=== PATIENT | female | born 1995 | race American Indian/Alaskan Native ===

== ENCOUNTER 2017-01-03 20:10 | Emergency (ER) | payer SELFPAY ==
[2017-01-03 20:14] VITALS: BMI 24.3
[2017-01-03 20:19] VITALS: RESP 18; O2SAT 96
[2017-01-03] MEDS ORDERED: Sodium Chloride 0.9% 1,000 ML IV STA (20:32)
[2017-01-03 20:49] LABS: URINE BILIRUBIN NEGATIVE (NEGATIVE); URINE BLOOD NEGATIVE (NEGATIVE); URINE GLUCOSE (UA) NEGATIVE (NEGATIVE); URINE KETONE NEGATIVE (NEGATIVE); URINE LEUKOCYTE ESTERASE NEGATIVE Leu/uL (NEGATIVE); URINE PROTEIN NEGATIVE mg/dL (<30 mg/dL); URINE UROBILINOGEN 0.2 E.U./dL (<1 E.U./dL)
[2017-01-03 20:52] LABS: URINE APPEARANCE CLEAR (CLEAR); URINE COLOR YELLOW (YELLOW)
--- NOTE | 2017-01-03 20:52 | ED PDOC ---
Arrival/HPI - General Chief Complaint: Flu-like Symptoms Time Seen by Provider: 01/03/17 20:19 Historian: Patient - History of Present Illness Narrative History of Present Illness (Text): 01/03/17 20:43 21yr old female presents today with fevers/chills/bodyaches x 2 days. c/o 1 day history of low back pain. denies dysuria complaining of slight urinary frequency that started today. Denies cough. Denies chest pain or shortness of breath. Patient states she took Motrin earlier today. Patient also states she took [place]. She denies any URI symptoms. Denies nasal congestion sore throat or ear pain. Denies vomiting or diarrhea. Denies abdominal pain. No vaginal bleeding or vaginal discharge. Past Medical History - Provider Review Nursing Documentation Reviewed: Yes - Travel History Have you recently traveled outside [place] w/in the past 3 mons?: No - Infectious Disease Hx of Infectious Diseases: None - Tetanus Immunization Tetanus Immunization: Unknown - Hematological/Oncological Hx Anemia: Yes - Gastrointestinal Other/Comment: GI Bleed - Psychiatric Hx Substance Use: Yes - Surgical History Other/Comment: for GI bleed - Anesthesia Hx Anesthesia: Yes Hx Anesthesia Reactions: No Hx Malignant Hyperthermia: No Family/Social History - Physician Review Nursing Documentation Reviewed: Yes Family/Social History: Unknown Family HX Smoking Status: Current Some Days Smoker Hx Alcohol Use: Yes Frequency of alcohol use: Socially Hx Substance Use: Yes Substance used: Marijuana Allergies/Home Meds Allergies/Adverse Reactions: Allergies No Known Allergies Allergy (Verified 01/03/17 20:14) Review of Systems - Review of Systems Constitutional: Fatigue, Fevers ENT: absent: Sore Throat, Sinus Congestion Respiratory: absent: SOB, Cough Cardiovascular: absent: Chest Pain, Palpitations Gastrointestinal: absent: Abdominal Pain, Constipation, Diarrhea, Nausea, Vomiting Genitourinary Female: Frequency. absent: Dysuria, Hematuria, Vaginal Bleeding, Vaginal Discharge Musculoskeletal: Back Pain. absent: Arthralgias, Neck Pain Skin: absent: Rash, Pruritis Neurological: absent: Headache, Dizziness Psychiatric: absent: Anxiety, Depression Physical Exam Vital Signs Reviewed: Yes Vital Signs Temp Pulse Resp BP Pulse Ox 01/03/17 20:59 100.1 F H 01/03/17 20:18 100.1 F H 114 H 18 108/67 96 Temperature: Afebrile Blood Pressure: Normal Pulse: Tachycardic Respiratory Rate: Normal Appearance: Positive for: Well-Appearing, Non-Toxic, Comfortable Pain Distress: None Mental Status: Positive for: Alert and Oriented X 3 - Systems Exam Head: Present: Atraumatic Conjunctiva: Present: Normal Mouth: Present: Moist Mucous Membranes Pharnyx: Present: Normal Neck: Present: Normal Range of Motion, Trachea Midline. No: Meningeal Signs Respiratory/Chest: Present: Clear to Auscultation, Good Air Exchange. No: Respiratory Distress, Accessory Muscle Use Cardiovascular: Present: Regular Rate and Rhythm, Normal S1, S2. No: Murmurs Abdomen: Present: Normal Bowel Sounds. No: Tenderness, Distention, Peritoneal Signs, Rebound, Guarding Back: Present: Normal Inspection. No: CVA Tenderness, Midline Tenderness, Paraspinal Tenderness Upper Extremity: Present: Normal ROM Lower Extremity: Present: Normal ROM Neurological: Present: GCS=15, Speech Normal Skin: Present: Warm, Dry, Normal Color. No: Rashes Psychiatric: Present: Alert, Oriented x 3 Medical Decision Making ED Course and Treatment: 01/03/17 20:52 Patient nontoxic well-appearing no distress with body aches fevers and chills 2 days. With low back pain 1 day CBC within normal limits CMP within normal limits Urinalysis: + nitrates, + bacteria; Rapid flu: negative tylenol given po keflex po pt reassessment; pt non toxic well appearing; no distress. stable vitals. pt with urinary frequency and low back pain. with + nitrates and bacteria; will treat for UTI. NO cva tenderness 01/03/17 21:51 discussed all results in depth with patient advised abx twice daily x 7 days for UTI. advised f/u with pmd. advised return immediately if symptoms worsen, persist or if new symptoms develop. Patient verbalizes understanding of discharge instructions and need for immediate followup. all aspects of this case were discussed the attending of record. impression; UTI Motrin every 6 hours as needed for fever/pain reduction Keflex 1 capsule twice daily 7 days increase fluids Follow-up primary care physician within the next 2 days Return immediately if symptoms worsen or persist or if new concerning symptoms develop - Lab Interpretations Lab Results: 01/03/17 20:56 01/03/17 20:56 Lab Results 01/03/17 20:56: WBC 10.0, RBC 4.86, Hgb 13.2, Hct 37.8, MCV 77.8 L, MCH 27.2, MCHC 34.9, RDW 14.0, Plt Count 391, MPV 10.1, Gran % 81.5 H, Lymph % (Auto) 6.8 L, [place] % (Auto) 10.7 H, Eos % (Auto) 0.8 L, Baso % (Auto) 0.2, Gran # 8.11 H, Lymph # 0.7 L, [place] # 1.1 H, Eos # 0.1, Baso # 0.02, Sodium 138, Potassium 4.1, Chloride 99, Carbon Dioxide 26, Anion Gap 17, BUN 9, Creatinine 0.9, Est GFR ( Amer) > 60, Est GFR (Non-Af Amer) > 60, Random Glucose 98, Calcium 9.8, Total Bilirubin 1.0, AST 33, ALT 31, Alkaline Phosphatase 70, Total Protein 9.2 H, Albumin 4.6, Globulin 4.6, Albumin/Globulin Ratio 1.0 L 01/03/17 20:35: Urine Color Yellow, Urine Appearance Clear, Urine pH 6.0, Ur Specific [place] 1.015, Urine Protein Negative, Urine Glucose (UA) Negative, Urine Ketones Negative, Urine Blood Negative, Urine Nitrate Positive H, Urine Bilirubin Negative, Urine Urobilinogen 0.2, Ur Leukocyte Esterase Negative, Urine RBC 0 - 2, Urine WBC 0 - 2, Ur Epithelial Cells 4 - 5, Amorphous Sediment Few, Urine Bacteria Mod, Influenza Typ A,B (EIA) Negative for flu a/b - Medication Orders Current Medication Orders: Cephalexin Monohydrate (Keflex) 500 mg PO STAT STA PRN Reason: Protocol Stop: 01/03/17 21:50 Discontinued Medications Acetaminophen (Tylenol 325mg Tab) 975 mg PO STAT STA Stop: 01/03/17 20:44 Last Admin: 01/03/17 20:59 Dose: 975 MG MAR Pain/Vitals Document 01/03/17 20:59 MR (Rec: 01/03/17 21:00 [id number]) Pain Reassessment Is This A Pain ReAssessment? No Presence of Pain Presence of Pain Yes Pain Scale Used Pain Scale Used Numeric Location Left, Right or Bilateral Bilateral Upper or Lower Lower Pain Location Body Site Back Intensity 6 Scale Used Numeric Vitals Temperature (97.6 F-99.6 F) 100.1 F Temperature Source Oral Sodium Chloride (Sodium Chloride 0.9%) 1,000 mls @ 999 mls/hr IV .Q1H1M STA Stop: 01/03/17 21:32 Last Admin: 01/03/17 20:57 Dose: 999 MLS/HR eMAR Start Stop Document 01/03/17 20:57 (Rec: 01/03/17 20:57 MR [id number]) Intravenous Solution Start Date 01/03/17 Start Time 20:57 End Date 01/03/17 End time 21:57 Total Infusion Time 60 Disposition/Present on Arrival - Present on Arrival Any Indicators Present on Arrival: No History of DVT/PE: No History of Uncontrolled Diabetes: No Urinary Catheter: No History of Decub. Ulcer: No History Surgical Site Infection Following: None - Disposition Have Diagnosis and Disposition been Completed?: Yes Diagnosis: Urinary tract infection Disposition Time: 21:54 Patient Plan: Discharge Condition: GOOD Discharge Instructions (ExitCare): Urinary Tract Infection in Women (ED) Additional Instructions: Motrin every 6 hours as needed for fever/pain reduction Keflex 1 capsule twice daily 7 days increase fluids Follow-up primary care physician within the next 2 days Return immediately if symptoms worsen or persist or if new concerning symptoms develop Prescriptions: Cephalexin [Keflex] 500 mg PO BID #14 capsule Ibuprofen [Motrin] 600 mg PO Q6H PRN #20 tab PRN Reason: pain/fever reduction Referrals: Ortiz Wang DO [Staff Provider] - Follow up with primary Forms: WORK NOTE
[2017-01-03 20:57] LABS: ADD MANUAL DIFF? NO
[2017-01-03 21:01] LABS: BASO # 0.02 K/mm3 (0.0-2.0); BASO % 0.2 % (0.0-3.0); EOS # 0.1 (0.0-0.7); EOS % 0.8 % (1.5-5.0); GRAN # 8.11 (1.4-6.5); GRAN % 81.5 % (50.0-68.0); HEMATOCRIT 37.8 % (36.0-48.0); LYMPH # 0.7 (1.2-3.4); LYMPH % 6.8 % (22.0-35.0); MEAN CELL VOLUME 77.8 fL (80.0-105.0); MEAN CORPUSCULAR HEMOGLOBIN 27.2 pg (25.0-35.0); MEAN CORPUSCULAR HGB CONC 34.9 g/dl (31.0-37.0); MEAN PLATELET VOLUME 10.1 fl (7.0-11.0); MONO # 1.1 (0.1-0.6); MONO % 10.7 % (1.0-6.0); PLATELET COUNT 391 10^3/uL (120.0-450.0)
[2017-01-03 21:05] LABS: URINE AMORPHOUS SEDIMENT FEW; URINE BACTERIA MOD (NEG); URINE RBC 0 - 2 /hpf (0-2); URINE WBC 0 - 2 /hpf (0-6)
[2017-01-03 21:15] LABS: ALKALINE PHOSPHATASE 70 U/L (38-133); ALT/SGPT 31 U/L (7-56); AST/SGOT 33 U/L (15-39); BLOOD UREA NITROGEN 9 mg/dL (7-21); CALCIUM 9.8 mg/dL (8.4-10.5); CARBON DIOXIDE 26 mmol/L (21-33); CHLORIDE 99 mmol/L (98-107); GFR AFRICAN-AMERICAN > 60; GLUCOSE,RANDOM 98 mg/dL (70-110); POTASSIUM 4.1 mmol/L (3.6-5.0); SODIUM 138 mmol/L (132-148); TOTAL PROTEIN 9.2 g/dL (5.8-8.3)
[2017-01-03 22:15] VITALS: PULSE 94
[2017-01-03 22:50] VITALS: BP 106/57; TEMP 99.4
== END 2017-01-03 22:51 | disposition home or self-care (01) ==
LOC: MERGE 20:10 → ED 20:10
DX: N39.0 Urinary tract infection, site not specified (principal); F17.210 Nicotine dependence, cigarettes, uncomplicated
CPT/HCPCS: 80053; 81001; 85025; 87086; 87804; 96360; 99284; J7040